=== PATIENT | female | born 1950 | race Caucasian/White ===

== ENCOUNTER → 2017-05-10 | Outpatient (CLI) | payer MEDICARE, MEDICAID ==
[~2017-05-10] MED LIST: ALBU1.252 IH; ALPR0.25 PO; AMIO200T2 PO; BUPR150T3 PO; COMBIH IH; DIGO125T71 PO; DOCU250C16 PO; DONE10TA8 PO; ESOM20SU PO; FLUT1DIS3 IH; FURO10VI4 PO; GABA-531 PO; IPRA21SP NASAL; LEVO150T11 PO; LORA10TA7 PO; MONT10TA21 PO; POTASSIUM; PRAV40TA3 PO; PRED10TA3 PO; PREG75 PO; QUET50TA PO; VICOT PO; WARF1 PO; ZOLP10TA7 PO; [UNRECOGNIZED DRUG - OTHER] PO
== END | disposition home or self-care (01) ==
LOC: RADMN 12:00
PROVIDERS: ATTEND Internal Medicine Cardiovascular Disease
DX: I42.9 Cardiomyopathy, unspecified (principal); I50.20 Unspecified systolic (congestive) heart failure
CPT/HCPCS: 78472; Q3010

== ENCOUNTER → 2018-05-21 | Outpatient (CLI) | payer MEDICARE, MEDICAID ==
[~2018-05-21] MED LIST changes: -AMIO200T2 PO; +AMIO200T5 PO
== END | disposition home or self-care (01) ==
LOC: RADMN 13:01
PROVIDERS: ATTEND Internal Medicine Cardiovascular Disease
DX: T46.2X1A Poisoning by other antidysrhythmic drugs, accidental (unintentional), initial encounter (principal); I42.5 Other restrictive cardiomyopathy; J81.1 Chronic pulmonary edema; I70.90 Unspecified atherosclerosis; Z95.0 Presence of cardiac pacemaker
CPT/HCPCS: 71046; 78472; A9560; 76942